=== PATIENT | female | born 1995 | race Caucasian/White ===

== ENCOUNTER 2019-09-16 15:18 | Emergency (ER) | payer MEDICAID ==
[2019-09-16] MEDS ORDERED: Triamcinolone Acetonide 40 MG/ML 1 ML MDV INJECT ONE (16:00)
[2019-09-16] MEDS ORDERED: Bupivacaine 0.5% 30 ML SDV INJECT ONE (16:01)
[2019-09-16] MEDS ORDERED: Lidocaine 1% PF 2 ML SDV INJECT ONE (16:03)
--- NOTE | 2019-09-16 16:21 | EDM.PDOC ---
ED HPI GENERAL MEDICAL PROBLEM - General Stated Complaint: BACK PAIN Time Seen by Provider: 09/16/19 15:45 Source of Information: Reports: Patient History Limitations: Reports: No Limitations - History of Present Illness INITIAL COMMENTS - FREE TEXT/NARRATIVE: This is a 24yo F with a lower back injury after lifting her 2 yo she and her heard a loud pop and she has immediate lower right back pain. Onset: Sudden Duration: Hour(s):, Constant Location: Reports: Back Quality: Reports: Ache Severity: Severe Improves with: Reports: None Worsens with: Reports: Movement Treatments INDUSTRIAL HEALTH ENGINEER: Reports: Cold Therapy, NSAIDS Back Pain Score (Numeric/FACES): 7 - Related Data Allergies Allergy/AdvReac Type Severity Reaction Status Date / Time No Known Allergies Allergy Verified 09/18/18 05:34 Home Meds: Home Meds Vits #93/Iron Fum/FA [ Formula Tablet] 1 each PO DAILY [History] Methocarbamol [Robaxin] 500 mg PO TID #45 tablet 09/16/19 [Rx] Past Medical History HEENT History: Reports: Impaired Vision Genitourinary History: Reports: None BOBJ DEVELOPER History: Reports: - Past Surgical History HEENT Surgical History: Reports: None Female Surgical History: Reports: Section Musculoskeletal Surgical History: Reports: Ganglion Cyst Social & Family History - Family History Family Medical History: Noncontributory - Caffeine Use Caffeine Use: Reports: None ED ROS GENERAL - Review of Systems Review Of Systems: ROS reveals no pertinent complaints other than HPI. ED EXAM,LOWER BACK PAIN/INJURY - Physical Exam Exam: See Below Exam Limited By: No Limitations General Appearance: Alert, WD/WN, Mild Distress Eye Exam: Bilateral Eye: EOMI, PERRL Ears: Normal External Exam Nose: Normal Inspection Throat/Mouth: Normal Inspection Head: Atraumatic, Normocephalic Neck: Normal Inspection Respiratory/Chest: No Respiratory Distress, Lungs Clear Cardiovascular: Normal Peripheral Pulses GI/Abdominal: Normal Bowel Sounds, Soft, Non-Tender Back Exam: Paraspinal Tenderness Extremities: Normal Inspection Neurological: Alert, Normal Mood/Affect, Normal Dorsiflexion ED LACERATION/WOUND PROCEDURES - Additional/Other Procedure(s) Other (Free Text) Procedure(s): Right lower back prepped sterilely and injected 2-2-2 27ga into 2 trigger point locations on the right paravertebral muscle group with improvement of pain. No complications. Course - Vital Signs Last Recorded V/S: Last Vital Signs Temp 36.6 C 09/16/19 15:31 Pulse 111 H 09/16/19 15:31 Resp 16 09/16/19 15:31 BP 156/99 H 09/16/19 15:31 Pulse Ox 99 09/16/19 15:31 - Orders/Labs/Meds Meds: Medications Discontinued Medications Generic Name Dose Route Start Last Admin Trade Name Judy PRN Reason Stop Dose Admin Bupivacaine HCl 2 ml 09/16/19 16:01 09/16/19 16:06 Marcaine 0.5% INJECT 09/16/19 16:02 4 ml ONETIME ONE Administration Lidocaine HCl 2 ml 09/16/19 16:03 09/16/19 16:07 Xylocaine-Mpf 1% INJECT 09/16/19 16:04 4 ml ONETIME ONE Administration Triamcinolone Acetonide 80 mg 09/16/19 16:00 09/16/19 15:35 Kenalog-40 INJECT 09/16/19 16:01 80 mg ONETIME ONE Administration Departure - Departure Time of Disposition: 16:00 Disposition: Home, Self-Care 01 Condition: Fair Clinical Impression: Acute lumbar myofascial strain Qualifiers: Encounter type: initial encounter Qualified Code(s): S39.012A - Strain of muscle, fascia and tendon of lower back, initial encounter - Discharge Information Prescriptions: Methocarbamol [Robaxin] 500 mg PO TID #45 tablet Instructions: Low Back Strain Referrals: PCP,None [Primary Care Provider] - Care Plan Goals: Continue with ice therapy today, may take tylenol or Ibuprofen as needed for pain. Return to hospital or clinic with any questions or concerns. - Problem List & Annotations (1) Acute lumbar myofascial strain SNOMED Code(s): 368046371, 29132486, 480051940 Code(s): S39.012A - STRAIN OF MUSCLE, FASCIA AND TENDON OF LOWER BACK, INIT Status: Acute Priority: High Qualifiers: Encounter type: initial encounter Qualified Code(s): S39.012A - Strain of muscle, fascia and tendon of lower back, initial encounter - Problem List Review Problem List Initiated/Reviewed/Updated: Yes - Assessment/Plan Plan: Counseled on supportive and conservative management. Discussed recent trigger point injections and close f/u if any symptoms persist or worsen. Rtc as directed and in ER if needed. Restrictions given to patient.
== END 2019-09-16 15:57 | disposition home or self-care (01) ==
LOC: LB.ED 15:18
DX: S39.012A Strain of muscle, fascia and tendon of lower back, initial encounter (principal); X50.0XXA Overexertion from strenuous movement or load, initial encounter
CPT/HCPCS: 20552; 96372; 99283; J2001; J3301; J3490

== ENCOUNTER 2019-09-23 19:59 | Emergency (ER) | payer MEDICAID ==
[2019-09-23] MEDS ORDERED: LORazepam 1 MG Tab ONE ×2 (22:15→22:44)
--- NOTE | 2019-09-24 11:39 | ER ---
REASON FOR EMERGENCY ROOM VISIT: Anxiety and chest pain. HISTORY: This 24-year-old woman comes in with a 3-day history of anxiety. She states that part of this reason for this anxiety is that her [id number] son had to be hospitalized for pneumonia in [place] a few days ago and was discharged 2 days ago. She has another child at home. She is not , but lives with her fiance and she states that she gets shaky and very anxious at times and states "I overthink things" and from there she gets anxious. She went to bed at 6 a.m. yesterday because of her work schedule and awoke at noon due to some pressure discomfort on her chest and this improved gradually. She still feels anxious and for this reason, she came to the emergency room. PAST MEDICAL HISTORY: 1. Anxiety. 2. Tachyarrhythmia. 3. Syncope. 4. UTI. 5. Back pain. MEDICATIONS: Include vitamins and Robaxin. ALLERGIES: NONE TO MEDICATIONS. FAMILY HISTORY: Her mother has high blood pressure and asthma. She is uncertain of her father's health. She has a sister with asthma and a brother with oppositional defiant disorder. REVIEW OF SYSTEMS: Pertinent positives and negatives as listed in the HPI. PHYSICAL EXAMINATION: VITAL SIGNS: As noted in the EMR. GENERAL: She is calm and pleasant and does not appear to be in any acute distress now. HEENT: Unremarkable. There is no conjunctivitis or scleral icterus. Oropharynx is normal. NECK: Supple. No adenopathy or JVD. CHEST: Clear to auscultation with good air exchange, and no wheezes, rhonchi, or rales. CARDIAC: Regular rate without murmur. ABDOMEN: Soft and nontender. EXTREMITIES: [place] and warm. No edema. No deformities. Normal pulses. SKIN: No rashes. LABORATORY DATA: We did go ahead and get an EKG. I do not see any convincing signs of any ischemia, particularly in comparing it to her old EKGs. Troponin 1 was obtained and this was normal. IMPRESSION: Anxiety. PLAN: She was given Ativan 1 mg, dispense #6 tablets, 1 q.12 hours p.r.n. anxiety, and she was advised to follow up with her provider. All questions were answered. She understands and agrees with this. MOR/TANO /[id number]
== END 2019-09-23 23:05 | disposition home or self-care (01) ==
LOC: LB.ED 19:59
DX: F41.9 Anxiety disorder, unspecified (principal)
CPT/HCPCS: 36415; 84484; 93005; 99285; A9270

== ENCOUNTER 2019-11-02 16:07 | Emergency (ER) | payer MEDICAID ==
[2019-11-02] MEDS: LORazepam 1 MG Tab PO ONE (17:00)
[2019-11-02] MEDS: LORazepam 1 MG Tab ONE (20:42)
--- NOTE | 2019-11-02 22:40 | EDM.PDOC ---
ED HPI GENERAL MEDICAL PROBLEM - General Chief Complaint: Head Injury Stated Complaint: Fell on Ice Time Seen by Provider: 11/02/19 16:30 Source of Information: Reports: Patient History Limitations: Reports: No Limitations - History of Present Illness INITIAL COMMENTS - FREE TEXT/NARRATIVE: This is a 24yo F who fell and hit her head on the ice. She noted some drainage from her nose that was profuse and lasted for about 10 minutes. She notes some headache but no other issues. Onset: Sudden Duration: Resolved Prior to Arrival Location: Reports: Head Quality: Reports: Ache Severity: Mild Improves with: Reports: None Worsens with: Reports: None Context: Reports: Activity Associated Symptoms: Reports: No Other Symptoms Treatments TECHNICAL DOCUMENTATION SPECIALIST: Reports: Other (see below) Other Treatments TECHNICAL DOCUMENTATION SPECIALIST: pressure to nose Posterior Head Pain Score (Numeric/FACES): 4 - Related Data Allergies Allergy/AdvReac Type Severity Reaction Status Date / Time No Known Allergies Allergy Verified 09/23/19 22:16 Home Meds: Home Meds Methocarbamol [Robaxin] 500 mg PO TID #45 tablet 09/16/19 [Rx] Past Medical History HEENT History: Reports: Impaired Vision Genitourinary History: Reports: None RISK CONTROL DIRECTOR History: Reports: Other RISK CONTROL DIRECTOR History: G2;P2 Psychiatric History: Reports: Anxiety - Past Surgical History HEENT Surgical History: Reports: None Female Surgical History: Reports: Section Musculoskeletal Surgical History: Reports: Ganglion Cyst Social & Family History - Family History Family Medical History: Noncontributory - Caffeine Use Caffeine Use: Reports: None ED ROS GENERAL - Review of Systems Review Of Systems: Comprehensive ROS is negative, except as noted in HPI. ED EXAM, HEAD INJURY - Physical Exam Exam: See Below Exam Limited By: No Limitations General Appearance: Alert, WD/WN, No Apparent Distress Head: Atraumatic, Normocephalic Eyes: Bilateral Eye: EOMI, PERRL Ears: Normal External Exam Nose: Normal Inspection Throat/Mouth: Normal Inspection, Normal Lips, Normal Teeth, Normal Gums Respiratory: No Respiratory Distress, Lungs Clear, Normal Breath Sounds Cardiovascular: Normal Peripheral Pulses, Regular Rate, Rhythm, No Edema GI/Abdominal Exam: Normal Bowel Sounds Extremities: Normal Inspection Neurologic: fire coordinator II-XII nml As Tested, No Motor/Sensory Deficits, Alert, Normal Mood/Affect, Oriented x 3 Skin: Normal Color, Warm/Dry Course - Vital Signs Last Recorded V/S: Last Vital Signs Temp 36.9 C 11/02/19 16:28 Pulse 84 11/02/19 17:20 Resp 18 11/02/19 16:50 BP 139/89 11/02/19 17:35 Pulse Ox 99 11/02/19 16:50 - Orders/Labs/Meds Orders: Active Orders 24 hr Category Date Time Status Cervical Spine wo Cont [CT] Stat Exams 11/02/19 16:23 Taken Head wo Cont [CT] Stat Exams 11/02/19 16:23 Taken Max Facial Sinus wo Cont [CT] Stat Exams 11/02/19 16:38 Taken Meds: Medications Discontinued Medications Generic Name Dose Route Start Last Admin Trade Name Judy PRN Reason Stop Dose Admin Lorazepam Confirm 11/02/19 17:04 11/02/19 20:42 Ativan Administered 11/02/19 17:05 Not Given Dose 1 mg .ROUTE .STK-MED ONE Lorazepam 1 mg 11/02/19 17:00 11/02/19 17:00 Ativan PO 11/02/19 17:01 1 mg ONETIME ONE Administration Departure - Departure Time of Disposition: 17:45 Disposition: Home, Self-Care 01 Condition: Good Clinical Impression: Concussion injury of brain - Discharge Information Instructions: Concussion, Adult, [id number], Head Injury, Adult, [id number] Referrals: PCP,None [Primary Care Provider] - Forms: ED Department Discharge Additional Instructions: Please follow the concussion information given to you and follow the directions for returning to regular activity. If you have a headache at the end of the day , you overworked your brain. Do less the next day. Concussions take a long time to resolve, and longer if you do too much too fast. Sepsis Event Note - Evaluation Sepsis Screening Result: No Definite Risk - Focused Exam Vital Signs: Vital Signs Temp Pulse Resp BP Pulse Ox 11/02/19 17:35 139/89 11/02/19 17:20 84 149/106 H 11/02/19 16:50 88 18 153/115 H 99 11/02/19 16:28 36.9 C 103 H 18 145/104 H 98 Date Exam was Performed: 11/02/19 Time Exam was Performed: 22:36 - Problem List & Annotations (1) Concussion injury of brain SNOMED Code(s): 543246346 Code(s): S06.0X9A - CONCUSSION W LOSS OF CONSCIOUSNESS OF UNSP DURATION, INIT Status: Acute - Problem List Review Problem List Initiated/Reviewed/Updated: Yes - My Orders Last 24 Hours: My Active Orders 11/02/19 16:23 Cervical Spine wo Cont [CT] Stat Head wo Cont [CT] Stat 11/02/19 16:38 Max Facial Sinus wo Cont [CT] Stat - Assessment/Plan Last 24 Hours: My Active Orders 11/02/19 16:23 Cervical Spine wo Cont [CT] Stat Head wo Cont [CT] Stat 11/02/19 16:38 Max Facial Sinus wo Cont [CT] Stat Plan: Counseled on close monitoring and f/u as needed. Discussed CT results and concussion syndrome. F/u as directed and as needed.
--- NOTE | 2019-11-03 09:25 | CT ---
DATE OF SERVICE: 11/02/19 CLINICAL DATA: Head injury. UNENHANCED BRAIN CT: Multislice axial acquisition was performed. No priors. No masses or mass effect. No intracranial hemorrhage. No evidence of acute or subacute infarct. No osseous abnormalities. IMPRESSION: No acute intracranial abnormalities. [id number] [facility]
--- NOTE | 2019-11-03 09:30 | CT ---
DATE OF SERVICE: 11/02/19 CLINICAL DATA: Head injury. CERVICAL SPINE CT: Multislice axial acquisition was performed. Axial images and sagittal and coronal reformations are reviewed. No priors. There is mild reversal of the normal cervical lordosis on the sagittal reformations. This is most likely positional or due to muscle spasm. No acute fracture or dislocation. No lytic or blastic bone lesion. 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 The soft tissues are unremarkable. IMPRESSION: No acute abnormalities. [id number] [facility]
--- NOTE | 2019-11-03 09:34 | CT ---
DATE OF SERVICE: 11/02/19 CLINICAL DATA: Head injury. FACIAL CT: Multislice axial acquisition was performed. Axial images and sagittal and coronal reformations are reviewed. No acute fracture or dislocation. There are rounded low density lesions in both maxillary sinuses consistent with retention cysts or polyps. There is minimal mucosal thickening in the ethmoid sinuses and right maxillary sinus consistent with chronic sinusitis. The globes and orbital contents appear normal. The soft tissues are unremarkable. IMPRESSION: No acute abnormalities. [id number] [facility]
== END 2019-11-02 17:42 | disposition home or self-care (01) ==
LOC: LB.ED 16:07
DX: S06.0X0A Concussion without loss of consciousness, initial encounter (principal); W01.198A Fall on same level from slipping, tripping and stumbling with subsequent striking against other object, initial encounter; Y93.01 Activity, walking, marching and hiking; Y92.828 Other wilderness area as the place of occurrence of the external cause
CPT/HCPCS: 70450; 70486; 72125; 99283; A9270